=== PATIENT | female | born 1995 | race Caucasian/White ===

== ENCOUNTER → 2018-11-27 | Outpatient (CLI) | payer BC ==
[~2018-11-27] MED LIST: IOHEXOL 240 MG/ML 50ML VIAL. ONE
[2018-11-27] MEDS: IOHEXOL 300 MG/ML 75 ML VIAL. IV ONE (09:56)
--- NOTE | 2018-11-27 10:32 | RAD ---
PQRS Compliance statement: One or more of the following individualized dose reduction techniques were utilized for this examination: 1. Automated exposure control. 2. Adjustment of the mA and/or kV according to patient size. 3. Use of iterative reconstruction technique. Indication:Omni 300 75cc: Right sided abdomen pain x 1 year, worse recently TECHNIQUE: CT abdomen and pelvis with IV contrast with multiplanar reformats. COMPARISON: None FINDINGS: Heart is normal in size. No pericardial or pleural effusion. 4 mm ground glass nodule in the right lower lobe (series 3 image 2). Liver, spleen, gallbladder, pancreas, adrenals and kidneys are within normal limits. No enlarged retroperitoneal or pelvic adenopathy. No free pelvic fluid or ascites. No bowel obstruction. Normal appendix. Scattered shotty mesenteric lymph nodes, nonspecific likely reactive. Anteverted uterus with IUD in place. 2.9 x 2.8 cm low attenuating lesion in the right ovary most likely simple cysts. Urinary bladder within normal limits. No suspicious bony lesion. IMPRESSION: 1. Ground glass nodule in the right lower lobe (4 mm). According to Fleischner's recommendation no further follow-up needed. Optional CT chest can be obtained in one to 2 years depending on risk factors. 2. No nephrolithiasis or hydronephrosis. Normal appendix. 3. Likely simple cyst in the right ovary. Electronically signed by: Artur Carreon DO (11/27/2018 10:29 AM) [id number]
== END | disposition home or self-care (01) ==
LOC: CT 08:32
PROVIDERS: ATTEND Physician Assistant
DX: R19.03 Right lower quadrant abdominal swelling, mass and lump (principal); N83.8 Other noninflammatory disorders of ovary, fallopian tube and broad ligament
CPT/HCPCS: 74177; Q9967

== ENCOUNTER → 2019-09-29 | Outpatient (CLI) | payer BC ==
--- NOTE | 2019-09-29 10:35 | RAD ---
CT ABDOMEN PELVIS WO CONTRAST History: Right lower quadrant pain. Right flank pain. Technique: Noncontrast examination of the abdomen and pelvis. Coronal and sagittal reconstructions were performed. Exposure: One or more of the following individualized dose reduction techniques were utilized for this examination: 1. Automated exposure control 2. Adjustment of the mA and/or kV according to patient size 3. Use of iterative reconstruction technique. Comparison: November 27, 2018 Findings: Lower chest: Right lower lobe pulmonary nodule measures 4 mm (series 2 image 2, unchanged Abdomen and pelvis: The liver, spleen, adrenal glands, pancreas and gallbladder are unremarkable. No biliary ductal dilatation. Unremarkable noncontrast appearance of the kidneys. No hydronephrosis. No renal, ureteral or urinary bladder calculi. Decompressed urinary bladder. Retroaortic left renal vein. Normal appendix. No evidence of bowel obstruction. No pathologic lymphadenopathy. No ascites. IUD noted within the uterus. Bones: No pathologic osseous lesions. Impression: 1. No acute intra-abdominal or pelvic pathology. 2. Unchanged right lower lobe pulmonary nodule, likely benign given patient's age. Recommend one-year follow-up if high risk. 3. IUD noted. Electronically signed by: Raymundo Mendoza DO (09/29/2019 10:32 AM) [id number]
== END | disposition home or self-care (01) ==
LOC: PMG 09:48
PROVIDERS: ATTEND Registered Nurse
DX: R91.1 Solitary pulmonary nodule (principal); Z97.5 Presence of (intrauterine) contraceptive device
CPT/HCPCS: 74176